=== PATIENT | female | born 1995 | race Caucasian/White ===

== ENCOUNTER → 2018-03-02 | Outpatient (CLI) | payer BC ==
[2018-03-02 10:32] LABS: Basophils % (A) 1 %; Eosinophils # (A) 0.7 k/uL (0-0.7); Eosinophils % (A) 13 %; HGB 14.6 gm/dL (11.4-16.0); Lymphocytes # (A) 2.1 k/uL (1.0-4.8); Lymphocytes % (A) 39 %; MCH 33.3 pg (25.0-35.0); MCHC 34.6 g/dL (31.0-37.0); MCV 96.2 fL (80.0-100.0); Mean Platelet Volume 7.2; Monocytes # (A) 0.3 k/uL (0-1.0); Monocytes % (A) 5 %; Neutrophils # (A) 2.1 k/uL (1.3-7.7); Neutrophils % (A) 38 %; Platelet Count 288 k/uL (150-450); RBC 4.37 m/uL (3.80-5.40); RDW 11.9 % (11.5-15.5); WBC 5.5 k/uL (3.8-10.6)
[2018-03-02 19:55] LABS: Albumin 4.4 g/dL (3.80-4.90); Albumin/Globulin Ratio 1.91 (1.20-2.10); Calcium 9.8 mg/dL (8.7-10.3); Globulin 2.3 g/dL (2.1-3.7); Potassium 3.9 mmol/L (3.5-5.5); Total Bilirubin 0.7 mg/dL (0.3-1.2); Total Protein 6.7 g/dL (6.2-8.2)
[2018-03-02 23:25] LABS: Soybean IgE 1.53 kU/L; Walnut IgE (Food) <0.10 kU/L
[2018-03-04 11:12] LABS: Hazelnut IgE 1.15 kU/L (<0.35); Hazelnut IgE Class CLASS II
[2018-03-04 11:13] LABS: Almond IgE 0.48 kU/L (<0.35); Almond IgE Class CLASS I; Brazil Nut IgE <0.35 kU/L (<0.35); Brazil Nut IgE Class CLASS 0; Cashew IgE 0.35 kU/L (<0.35); Pecan IgE <0.35 kU/L (<0.35); Pecan IgE Class CLASS 0; Pistachio IgE Class CLASS 0
[2018-03-04 11:14] LABS: Casein IgE Class CLASS 0
== END | disposition home or self-care (01) ==
LOC: LABWHC1 09:56
PROVIDERS: ATTEND Nurse Practitioner Family
DX: Z13.0 Encounter for screening for diseases of the blood and blood-forming organs and certain disorders involving the immune mechanism (principal); Z13.1 Encounter for screening for diabetes mellitus; Z13.228 Encounter for screening for other metabolic disorders
CPT/HCPCS: 36415; 80053; 84443; 85025; 86003

== ENCOUNTER 2019-02-15 19:09 | Emergency (ER) | payer BC ==
[2019-02-15 19:19] VITALS: TEMP 98.4
[2019-02-15] MEDS ORDERED: methylPREDNISolone SOD SUCCI 125 MG/2 ML VIAL IV STA (19:58)
[2019-02-15] MEDS ORDERED: FAMOTIDINE 20 MG/2 ML VIAL IV STA (19:58)
[2019-02-15] MEDS ORDERED: diphenhydrAMINE 50 MG/ML 1 ML VIAL IVP STA (19:58)
--- NOTE | 2019-02-15 21:10 | CT ---
EXAMINATION TYPE: CT angio head neck DATE OF EXAM: 02/15/2019 HISTORY: dizziness post chiropractic adjustment COMPARISON: CT DLP: 328.1 mGycm. Automated Exposure Control for Dose Reduction was Utilized. TECHNIQUE: CTA scan of the neck is performed with IV Contrast, patient injected with 65cc mL of Isov ue 370, axial images are obtained, coronal and sagittal reformatted images are reviewed. Three-D jamil nstructed images are created on an independent workstation and reviewed. FINDINGS: There is normal branching pattern of the great vessels on the aortic arch. There is arterial flow in both subclavian arteries. There is arterial flow in the vertebral and commo n and internal and external carotid arteries bilaterally. There is no evidence of carotid or vertebra l artery aneurysm or dissection. There is no evidence of hemodynamic stenosis. There is arterial flow in the anterior middle and posterior cerebral arteries. There is no mass effec t. There is no evidence of aneurysm or neovascularity. There is normal contrast opacification of the venous sinuses. There is no evidence of intracranial arterial stenosis. There is arterial flow in the vertebrobasilar artery system. IMPRESSION: Normal CT angiogram of the neck. Normal CT angiogram of the brain.
--- NOTE | 2019-02-15 21:30 | ED ---
Dizziness HPI - General Chief Complaint: Dizziness Stated Complaint: dizziness/fatigue Time Seen by Provider: 02/15/19 19:20 Source: patient Mode of arrival: ambulatory Limitations: no limitations - History of Present Illness Initial Comments: The patient is a 23-year-old female presents emergency room in with reported dizziness that has been going on for the past 2 days. She states that she has been having neck pain. She saw a chiropractor and did have manipulation of her neck 2 days ago. States that afterward she developed vertiginous symptoms. Denies any visual changes. No fevers or chills. Denies headaches. No upper or lower extremity. No paresthesias or paralysis. There are no alleviating, precipitating or modifying factors - Related Data Home Medications Medication Instructions Recorded Confirmed Albuterol Sulfate [Ventolin HFA] 2 puff INHALATION RT-QID PRN 02/15/19 02/15/19 Fluticasone Propion/Salmeterol 1 puff INHALATION RT-BID 02/15/19 02/15/19 [Wixela 100-50 Inhub] Ibuprofen [Motrin] 800 mg PO TID PRN 02/15/19 02/15/19 Levocetirizine Dihydrochloride 5 mg PO DAILY 02/15/19 02/15/19 [Xyzal] Multivitamins, Thera [Multivitamin 1 tab PO DAILY 02/15/19 02/15/19 (formulary)] Vitamin B Complex 1 cap PO DAILY 02/15/19 02/15/19 Allergies Allergy/AdvReac Type Severity Reaction Status Date / Time adhesive Allergy Rash/Hives Verified 02/15/19 20:41 amoxicillin Allergy Rash/Hives Verified 02/15/19 20:41 azithromycin [From Zithromax] Allergy Rash/Hives Verified 02/15/19 20:41 myles Allergy Unknown Verified 02/15/19 20:41 latex Allergy Rash/Hives Verified 02/15/19 20:41 peanut Allergy Unknown Verified 02/15/19 20:41 peas Allergy Unknown Verified 02/15/19 20:41 rice Allergy Unknown Verified 02/15/19 20:41 soy Allergy Unknown Verified 02/15/19 20:41 tree nut [Nut] Allergy Unknown Verified 02/15/19 20:41 Review of Systems ROS Statement: Those systems with pertinent positive or pertinent negative responses have been documented in the HPI. ROS Other: All systems not noted in ROS Statement are negative. Past Medical History Past Medical History: Asthma History of Any Multi-Drug Resistant Organisms: None Reported Past Surgical History: No Surgical Hx Reported Past Psychological History: No Psychological Hx Reported Smoking Status: Never smoker Past Alcohol Use History: None Reported Past Drug Use History: None Reported General Exam Limitations: no limitations General appearance: alert, in no apparent distress Head exam: Present: atraumatic, normocephalic, normal inspection Eye exam: Present: normal appearance, PERRL, EOMI. Absent: scleral icterus, conjunctival injection, periorbital swelling ENT exam: Present: normal exam, mucous membranes moist Neck exam: Present: normal inspection. Absent: tenderness, meningismus, lymphadenopathy Respiratory exam: Present: normal lung sounds bilaterally. Absent: respiratory distress, wheezes, rales, rhonchi, stridor Cardiovascular Exam: Present: regular rate, normal rhythm, normal heart sounds. Absent: systolic murmur, diastolic murmur, rubs, gallop, clicks GI/Abdominal exam: Present: soft, normal bowel sounds. Absent: distended, tenderness, guarding, rebound, rigid Extremities exam: Present: normal inspection, full ROM, normal capillary refill, other (finger to nose is symmetric. No nystagmus. Pt ambulatory without ataxia. No pronator drift or truncal ataxia). Absent: tenderness, pedal edema, joint swelling, calf tenderness Back exam: Present: normal inspection Neurological exam: Present: alert, oriented X3, CN II-XII intact Psychiatric exam: Present: normal affect, normal mood Skin exam: Present: warm, dry, intact, normal color. Absent: rash Course Vital Signs 02/15/19 02/15/19 19:16 22:11 Temperature 98.4 F Pulse Rate 79 80 Respiratory 20 18 Rate Blood Pressure 134/87 100/64 O2 Sat by Pulse 100 98 Oximetry Medical Decision Making - Medical Decision Making Upon arrival patient was placed into room 7. A thorough history and physical exam is performed. NIH is negative. I did review the patient's laboratory studies which were unremarkable. I did recommend a CT of the patient's head and neck because of her recent manipulation. Imaging is performed and is negative. She was given pretreatment for contrast. Discussed diagnosis, differential and treatment options. The patient is comfortable in room at this time. I did recommend follow up with her primary care physician. She may need an MRI and neurology evaluation. Patient has any new or worsening symptoms she should return to the emergency room. Patient was in agreement to plan discharge in stable condition - Lab Data Lab Results 02/15/19 Range/Units 10:14 Urine HCG, Qual Not Detected (Not Detectd) Disposition Clinical Impression: Dizziness Disposition: HOME SELF-CARE Condition: Stable Instructions (If sedation given, give patient instructions): Dizziness (ED) Additional Instructions: Please follow-up with her primary care physician. I did recommend neurologic workup. Return to the emergency room for any new or worsening symptoms Is patient prescribed a controlled substance at d/c from ED?: No Referrals: Tonia Nichols MD [Primary Care Provider] - 1-2 days Time of Disposition: 21:30
[2019-02-15 22:13] VITALS: BP 100/64; PULSE 80; RESP 18
== END 2019-02-15 22:12 | disposition home or self-care (01) ==
LOC: EC 19:09
DX: R42 Dizziness and giddiness (principal); J45.909 Unspecified asthma, uncomplicated; Z79.51 Long term (current) use of inhaled steroids; Z79.899 Other long term (current) drug therapy; Z91.048 Other nonmedicinal substance allergy status; Z88.1 Allergy status to other antibiotic agents; Z91.010 Allergy to peanuts; Z91.040 Latex allergy status; Z91.018 Allergy to other foods; Z98.890 Other specified postprocedural states
CPT/HCPCS: 99284; 96374; 96375 ×2; 81025; 70496; 70498; J1200; J2930; Q9967

== ENCOUNTER → 2019-02-15 | Outpatient (CLI) | payer BC ==
[2019-02-15 10:36] LABS: Basophils % (A) 1 %; Eosinophils # (A) 0.3 k/uL (0-0.7); Eosinophils % (A) 7 %; HCT 43.4 % (34.0-46.0); HGB 14.6 gm/dL (11.4-16.0); Lymphocytes # (A) 1.8 k/uL (1.0-4.8); Lymphocytes % (A) 39 %; MCH 32.7 pg (25.0-35.0); MCHC 33.7 g/dL (31.0-37.0); Mean Platelet Volume 6.8; Monocytes # (A) 0.3 k/uL (0-1.0); Monocytes % (A) 6 %; Neutrophils % (A) 43 %; Platelet Count 314 k/uL (150-450); RBC 4.48 m/uL (3.80-5.40); WBC 4.6 k/uL (3.8-10.6)
[2019-02-15 11:16] LABS: Appearance,Urine Clear (Clear); Bilirubin,Urine Negative (Negative); Blood,Urine Moderate (Negative); Color,Urine Yellow; Glucose,Urine (UA) Negative (Negative); Ketones,Urine Negative (Negative); Leukocyte Esterase,Urine Negative (Negative); Nitrite,Urine Negative (Negative); PH, Urine 7.5 (5.0-8.0); Protein,Urine Negative (Negative); RBC,Urine 138 /hpf (0-5); Specific Gravity,Urine 1.009 (1.001-1.035); Squamous Epithelial Cell,Urine 1 /hpf (0-4); Urobilinogen,Urine <2.0 mg/dL (<2.0); WBC,Urine 3 /hpf (0-5)
[2019-02-15 17:24] LABS: % Iron Saturation 28.06 (12.00-45.00); African American GFR (CKD) 104.5 (60.0-200.0); Albumin 4.7 g/dL (3.80-4.90); Albumin/Globulin Ratio 1.96 (1.60-3.17); Anion Gap 5.5 mmol/L (4.00-12.00); BUN/Creat Ratio 8.89 Ratio (12.00-20.00); Calcium 9.6 mg/dL (8.7-10.3); Carbon Dioxide 29.5 mmol/L (21.6-31.8); Globulin 2.4 g/dL (1.6-3.3); Potassium 4.4 mmol/L (3.5-5.5); Total Bilirubin 1.1 mg/dL (0.2-1.2); Total Protein 7.1 g/dL (6.2-8.2)
[2019-02-15 19:03] LABS: Hemoglobin A1C 4.8 % (4.0-6.0)
== END | disposition home or self-care (01) ==
LOC: LABWHC1 09:56
PROVIDERS: ATTEND Family Medicine
DX: R42 Dizziness and giddiness (principal)
CPT/HCPCS: 36415; 80053; 81001; 82306; 82607; 82747; 83036; 83540; 83550; 84443; 85025

== ENCOUNTER → 2019-04-01 | Outpatient (CLI) | payer BC ==
[2019-04-03 13:55] LABS: Latex IgE Class CLASS 0
== END | disposition home or self-care (01) ==
LOC: LABWHC1 10:00
PROVIDERS: ATTEND Allergy & Immunology
DX: T78.1XXA Other adverse food reactions, not elsewhere classified, initial encounter (principal)
CPT/HCPCS: 36415; 86003